=== PATIENT | male | born 1985 | race Caucasian/White ===

== ENCOUNTER 2017-02-10 13:27 | Observation (INO) ==
[2017-02-10] MEDS ORDERED: Aspirin 81 MG TAB.CHEW PO STA (15:17)
[2017-02-10 15:31] LABS: Basophils % 0.4 %; Eosinophils # 0.1 K/mcL (0.0-0.6); Eosinophils % 0.7 %; Hematocrit 47.6 % (37.5-50.1); Hemoglobin 16.2 g/dL (12.9-16.9); Immature Granulocytes % 0.3 % (0-4); Lymphocytes # 1.7 K/mcL (0.6-4.6); Lymphocytes % 18.7 %; Mean Corpuscular Hemoglobin 29.2 pg (28.0-33.3); Mean Corpuscular Volume 85.8 fL (83.0-100.0); Mean Platelet Volume 10.3 fL (9.4-12.4); Monocytes # 0.6 K/mcL (0.0-1.3); Monocytes % 6.7 %; Neutrophils # 6.6 K/mcL (1.6-8.9); Platelet Count 200 K/mcL (140-400); Red Blood Count 5.55 M/mcL (4.19-5.50); Red Cell Distribution Width 12.3 % (11.5-14.5); Segmented Neutrophils % 73.2 %
--- NOTE | 2017-02-10 15:36 | Emergency Department Note ---
Disposition Clinical Impression: Chest pain Qualifiers: Chest pain type: unspecified Qualified Code(s): R07.9 - Chest pain, unspecified Disposition: Admitted As Inpatient Referrals: Enid Graf M.D. [Primary Care Provider] - Chest Pain HPI - General Chief Complaint: ED Chest Pain Stated Complaint: chest pain, PALAK Time Seen by Provider: 02/10/17 14:59 Source: patient Limitations: no limitations Vital Signs Reviewed: Yes Nursing Notes Reviewed: Yes - History of Present Illness HPI Narrative: 31-year-old male presents to the ED with complaints of chest pain. His past medical history consists of hypertension where he no longer takes medications as he is now controlled with exercise and diet for 1 year. Patient states the pain occurred approximately a half hour before his arrival to the emergency department while he was driving to work. He states the pain is 5 out of 10, sharp and nonradiating. He states the pain comes and goes and lasts for about 2 -3 minutes and then we will leave. He does not notice any exertional pain or when he does any specific tasks that it occurs. He has never felt this pain before. Does note shortness of breath only during the times of pain. Upon this examination he was not currently in pain while I was examining him. Patient does have a family history of heart attacks at a young age where his mother's father had a heart attack in his 30s where he had a heart catheter at that time. Pt complaint: chest pain Severity scale (1-10): 0 - Related Data Home Medications Medication Instructions Recorded Confirmed No Known Home Drugs 02/10/17 02/10/17 Allergies Allergy/AdvReac Type Severity Reaction Status Date / Time No Known Allergies Allergy Verified 02/10/17 13:38 Constitutional: Denies: fever, chills, weakness, weight change Eyes: Denies: eye pain, eye discharge, vision change ENT ED: Denies: ear pain, throat pain, dental pain, hearing loss, epistaxis, congestion, dysphagia Cardiovascular: Reports: chest pain. Denies: palpitations, dyspnea on exertion , edema, syncope Respiratory: Denies: cough, dyspnea, wheezes, hemoptysis, stridor Gastrointestinal: Denies: abdominal pain, nausea, vomiting, diarrhea, constipation, hematemesis, melena, hematochezia Genitourinary: Denies: urgency, dysuria, frequency, hematuria Musculoskeletal: Denies: back pain, neck pain, arthralgia, myalgia Integumentary: Denies: rash, abrasion, lesions Neurological: Reports: headache (A slight headache during his drive.). Denies: weakness, numbness, paresthesias, confusion, abnormal gait, vertigo Endocrine: Denies: fatigue Hematological/Lymphatic: Denies: easy bleeding, easy bruising Chest Pain PMH - Past Medical History Medical history: Reports: hypertension, other - Social History Smoking Status: Never smoker Alcohol use: Reports: occasionally Drug use: Reports: none Physical Exam - General Limitations: no limitations General appearance: alert - Head Head exam: atraumatic, normocephalic, normal inspection - Chest Chest inspection: Present: normal inspection, symmetric chest wall rise - Respiratory Respiratory exam: Present: normal lung sounds bilaterally - Cardiovascular Cardiovascular exam: Present: regular rate, normal rhythm, normal heart sounds - Abdominal Exam Abdominal exam: Present: soft, Non-Tender. Absent: tenderness, distention, guarding, rebound, rigidity Course Course Narrative: -year-old male presents to the ED with complaints of chest pain. He has no pertinent medical history. Will do normal chest pain workup with chest x-ray EKG, BNP, CBC, troponin. Due to the sudden onset of chest pain and shortness of breath during the pain will order a d-dimer. Vital Signs Temperature 97.9 F 02/10/17 13:36 Pulse Rate 93 02/10/17 13:36 Respiratory Rate 18 02/10/17 13:36 Blood Pressure 169/97 02/10/17 13:36 O2 Sat by Pulse Oximetry 97 02/10/17 13:36 Temperature 97.9 F 02/10/17 13:36 Pulse Rate 80 02/10/17 15:29 Respiratory Rate 16 02/10/17 15:29 Blood Pressure 131/81 02/10/17 15:29 O2 Sat by Pulse Oximetry 98 02/10/17 15:29 Oxygen Delivery Oxygen Delivery Room Air Chest Pain - [facility] Narrative Medical decision making narrative: 31 yo male presents to the ED with complaints of chest pain. She has a past medical history of hypertension but is unmedicated for the last year and is controlling it with exercise. He has a family history of young age heart attacks. Will do a normal chest pain workup. Further workup was done in triage before I saw the patient. Chest x-ray showed no acute pulmonary findings. EKG was normal as well. Labs are still pending. After talking to patient and him stating he was short of breath and the sudden onset of the pain will order a d-dimer. The patient was PERC negative but after looking a patient in an extending his symptoms will order d-dimer to rule out pulmonary embolus or other vascular issues. Will not give nitroglycerin at this point because he is not currently having chest pain. Did give patient 324 mg of chewable aspirin. Patient is okay with this plan. 1640-patient was reevaluated and states he still does not have any chest pain. All labs came back normal chest x-ray was normal, and EKG was normal. Due to patient's chest pain beginning 3 hours ago we cannot rule out an acute cardiac event. After talking the patient further we found out that his entire family has Marfan syndrome and he does not have that and has not done any cardiac testing. After talking to patient and we decided his best to admit the patient for a chest pain rule out due to time of chest pain onset and family history. Patient agrees to the plan. 1800- Spoke with Dr. Leiva who agrees to admit the patient for chest pain rule out. Patient was worried about how to get car to family and kids spoke with social media marketing specialist Jessenia who stated she will talk to him and see if she can set something up. Chest X-Ray 02/10/17 13:43 IMPRESSION: 1. No active pulmonary disease. D/ / Deangelo Cross MD / Deangelo Cross MD Interpreting Provider: Deangelo Cross MD - Medical Records Medical records reviewed: Yes I reviewed the patient's medical records. - Lab Data Lab results reviewed: Yes I reviewed the patient's lab results. Result diagrams: 02/10/17 15:18 02/10/17 15:18 Lab Results 02/10/17 02/10/17 02/10/17 Range/Units 15:18 15:18 15:18 WBC 9.1 (4.3-11.1) K/mcL RBC 5.55 H (4.19-5.50) M/mcL Hgb 16.2 (12.9-16.9) g/dL Hct 47.6 (37.5-50.1) % MCV 85.8 (83.0-100.0) fL MCH 29.2 (28.0-33.3) pg MCHC 34.0 (31.6-35.5) g/dL RDW 12.3 (11.5-14.5) % Plt Count 200 (140-400) K/mcL MPV 10.3 (9.4-12.4) fL Immature Gran % 0.3 (0-4) % Seg Neutrophils % 73.2 % Lymphocytes % 18.7 % Monocytes % 6.7 % Eosinophils % 0.7 % Basophils % 0.4 % Neutrophils # 6.6 (1.6-8.9) K/mcL Lymphocytes # 1.7 (0.6-4.6) K/mcL Monocytes # 0.6 (0.0-1.3) K/mcL Eosinophils # 0.1 (0.0-0.6) K/mcL Basophils # 0.0 (0.0-0.2) K/mcL PT 10.5 (9.4-12.1) Seconds INR 1.0 APTT 27.4 (26.0-36.0) Seconds D-Dimer 374 (0-500) ng/mLFEU Sodium 137 (136-145) mEq/L Potassium 4.3 (3.5-4.5) mEq/L Chloride 107 (98-109) mEq/L Carbon Dioxide 27 (19-29) mEq/L BUN 11 (8-26) mg/dL Creatinine 0.85 (0.72-1.25) mg/dL Est GFR ( Amer) > 60 (> 60) Est GFR (Non-Af Amer) > 60 (> 60) BUN/Creatinine Ratio 13 (6-26) Glucose 85 (70-99) mg/dL Calculated Osmolality 283 (280-300) Calcium 9.4 (8.6-10.8) mg/dL Troponin I (0-0.03) ng/mL 02/10/17 Range/Units 15:18 WBC (4.3-11.1) K/mcL RBC (4.19-5.50) M/mcL Hgb (12.9-16.9) g/dL Hct (37.5-50.1) % MCV (83.0-100.0) fL MCH (28.0-33.3) pg MCHC (31.6-35.5) g/dL RDW (11.5-14.5) % Plt Count (140-400) K/mcL MPV (9.4-12.4) fL Immature Gran % (0-4) % Seg Neutrophils % % Lymphocytes % % Monocytes % % Eosinophils % % Basophils % % Neutrophils # (1.6-8.9) K/mcL Lymphocytes # (0.6-4.6) K/mcL Monocytes # (0.0-1.3) K/mcL Eosinophils # (0.0-0.6) K/mcL Basophils # (0.0-0.2) K/mcL PT (9.4-12.1) Seconds INR APTT (26.0-36.0) Seconds D-Dimer (0-500) ng/mLFEU Sodium (136-145) mEq/L Potassium (3.5-4.5) mEq/L Chloride (98-109) mEq/L Carbon Dioxide (19-29) mEq/L BUN (8-26) mg/dL Creatinine (0.72-1.25) mg/dL Est GFR ( Amer) (> 60) Est GFR (Non-Af Amer) (> 60) BUN/Creatinine Ratio (6-26) Glucose (70-99) mg/dL Calculated Osmolality (280-300) Calcium (8.6-10.8) mg/dL Troponin I 0.00 (0-0.03) ng/mL - Radiology Data Radiology results reviewed: Yes I reviewed the patient's radiology results. - EKG Data EKG attestation: Yes I reviewed and interpreted this EKG. EKG results narrative: KG done at 1342. There is no old EKG for comparison. Rhythm shows normal sinus with a rate of 93 AK 160 QRS 90 and QTc 357. Normal axis. No acute ST changes. No acute T-wave changes. No signs of WPW, Brugada. EKG shows normal: sinus rhythm Rate: normal Rhythm: NSR Bigelow/QRS: normal When compared to previous EKG there are: previous EKG unavailable Interpretation: no acute changes, normal EKG Heart Score - Score History: Slightly Suspicious EKG: Normal Age: Less than 45 Risk Factors: 1-2 risk factors Troponin: Less than normal limit HEART Score Total: 1 Attestation Statement - Attestation Attestation: I personally interviewed and examined this patient and my medical decision- making was reviewed with the ED Resident Physician, Dr. Randolph. I agree with the documented findings, disposition and treatment plan as described except to the extent set forth below. Patient is a 31-year-old white male with a history of hypertension no longer on medication, positive family history for CAD, and strong immediate family history for Marfan's who presents to the emergency room today with chest pain and shortness of breath. Pain began while driving to work at rest in his left chest was radiating up into his left arm pain associated with mild nausea, shortness of breath. Patient has not had any previous cardiac workup in the past with the exception of his evaluation for Marfan's. Patient has never had a cardiac stress test or heart catheterization. Patient states that he was told that he does not have Marfan's but he is the only one in his immediate family he does not. Patient's on my assessment was pain-free on arrival to the triage desk. . Patient's physical exam findings as documented. Patient's EKG was normal sinus rhythm with no acute changes. Patient's laboratory evaluation is unremarkable including troponin and d-dimer. Chest x-ray is within normal limits. Patient remains pain-free with stable vital signs in the ED. Patient with concerning signs and symptoms of pain length of time that he experienced the pain, positive family history as well as strong immediate family history for Marfan's. Based on the time of onset we are unable to rule him out here in the ED. We recommended he comes in for admission for chest pain and further evaluation.
[2017-02-10 15:48] LABS: BUN/Creatinine Ratio 13 (6-26); Blood Urea Nitrogen 11 mg/dL (8-26); Calcium 9.4 mg/dL (8.6-10.8); Carbon Dioxide 27 mEq/L (19-29); Chloride 107 mEq/L (98-109); Glucose 85 mg/dL (70-99); Osmolality,Calculated 283 (280-300); Potassium 4.3 mEq/L (3.5-4.5); Sodium 137 mEq/L (136-145); eGFR For African Americans > 60 (> 60); eGFR For Non-African Americans > 60 (> 60)
[2017-02-10 15:51] LABS: Prothrombin Time 10.5 Seconds (9.4-12.1)
[2017-02-10 15:54] LABS: Activated Partial Thrombo Time 27.4 Seconds (26.0-36.0)
[2017-02-10] MEDS ORDERED: *HR* Morphine 2 MG/ML SYRINGE IVP PRN (22:42)
[2017-02-10] MEDS ORDERED: Naloxone 0.4 MG/ML INJ IVP PRN (22:42)
[2017-02-10] MEDS ORDERED: Acetaminophen 325 MG TABLET PO PRN (22:42)
[2017-02-10] MEDS ORDERED: Ondansetron 4 MG/2 ML VIAL IVP PRN (22:42)
--- NOTE | 2017-02-10 22:51 | Internal Med History&Physical ---
Date of Encounter: 02/10/17 Time of Encounter: 22:05 Assessment and Plan (1) Chest pain Current visit: Yes Status: Acute 1. Will cycle troponins, EKG's. 2. Will schedule stress nuclear test in the morning. 3. Check lipid profile in am. 4. Monitor BP given history of HTN. 5. Patient received aspirin in ER. Qualifiers: Chest pain type: precordial pain Qualified Code(s): R07.2 - Precordial pain (2) Family history of Marfan syndrome Current visit: Yes Status: Chronic 1. Patient does not have body habitus of Marfan's on exam. 2. Will order ECHO in the morning nonetheless to evaluate cardiac anatomy. (3) DVT prophylaxis Current visit: Yes Status: Acute 1. Heparin SQ. Internal Medicine - H&P: HPI Chief complaint: chest pain Admitted From: Emergency Dept Plans for Post Hospital Care: Home History of present illness: Mr. Matute is a 31 year old male who was driving to work earlier today when he developed substernal chest pain, pressure, palpitations, diaphoresis, and lightheadedness. He pulled his car over the right side, open his windows, and turned up the air-conditioning in hopes of alleviating symptoms. However, symptoms lasted about 20-25 minutes and he had no relief. He therefore drove himself to the ER where he was evaluated for his symptoms. He was subsequently admitted to the hospitalist service for further workup and care. His symptoms resolved shortly after arrival to the ER. He currently remains chest pain-free and has no further symptoms. Despite his young age, there is concern for heart disease given his strong family history of premature coronary artery disease. His maternal grandfather had a heart attack in his 30s. Heart disease runs extensively in his mother's side. Furthermore, his mother and 2 siblings have Marfan syndrome. He had an echo about 12 years ago which was reportedly normal. He has never been diagnosed with Marfan syndrome himself. He does have a history of blood pressure and cholesterol problems, but he has been off medications and his blood pressure and cholesterol have stabilized he reports. Past Med Surg Social Fam HX - Past Medical History Attestation: Yes The following information was validated with the patient. Source: patient, old records reviewed Medical history: hyperlipidemia, hypertension Psychiatric history: bipolar, depression - Past Surgical History Surgical History: herniorrhaphy - Social History Smoking Status: Never smoker Smokeless Tobacco Status: Yes Alcohol use: occasionally Drug use: none Occupational status: employed Current living situation: Home, With Family Activity Level: Independent ambulation, Very active Recent Out of Country Travel Within the Last 8 Weeks: No - Family History Mother Age: 61 Living Status: Still Living Hx Family Cardiac Disorders: Yes (HTN) Hx Family Endocrine Disorder: Yes (DM) Hx Family Medical Disorders: Yes (Marfan Syndrome) Father Living Status: Age at : 50 Cause of : Xi's Disease - Additional Family History Additional family history: Mother adn 2 siblings with Marfan's Syndrome Internal Medicine - H&P: Meds No Known Home Drugs 02/10/17 [History] Allergies No Known Allergies Allergy (Verified 02/10/17 13:38) - Constitutional Constitutional: no chills, no fever(s), no night sweats - EENT Eyes: no blurry vision, no change in vision, no diplopia Ears: no ear pain, no tinnitus Nose, mouth and throat: no nasal congestion, no sinus pressure, no sore throat - Cardiovascular Cardiovascular ROS IM: chest pain, diaphoresis, dyspnea, lightheadedness, palpitations, no irregular heart rhythm, no syncope - Respiratory Respiratory: dyspnea, no cough, no hemoptysis, no chest congestion, no excessive phlegm production, no change in phlegm color - Gastrointestinal Gastrointestinal: no abdominal pain, no diarrhea, no hematemesis, no hematochezia, no melena, no vomiting - Genitourinary Genitourinary ROS male: no dysuria, no flank pain, no hematuria - Musculoskeletal Musculoskeletal ROS IM: back pain, no atrophy - Integumentary Integumentary IM: no rash - Neurological Neurological ROS: dizziness, no focal weakness, no frequent falls, no headache(s ), no numbness - Psychiatric Psychiatric: no anxiety, no depression - Endocrine Endocrine IM: no cold intolerance, no heat intolerance, no polydipsia, no polyuria - Hematologic/Lymphatic Hematologic/Lymphatic: no easy bruising, no lymphadenopathy - Allergic/Immunologic Allergic/Immunologic: no wheezing, no GI upset with certain foods - Constitutional Vitals: Temp Pulse Resp BP Pulse Ox 98.7 F 80 16 148/84 94 02/10/17 22:30 02/10/17 22:30 02/10/17 22:30 02/10/17 22:30 02/10/17 22:30 General appearance: Present: cooperative, A&O X 3, pleasant, no acute distress, answers questions appropriately - Head Head exam: Present: atraumatic, normal inspection - Eye Eye exam: Present: EOMI, PERRL. Absent: scleral icterus Pupils: Present: normal accommodation - ENT ENT exam: Present: mucous membranes moist, normal exam - Neck Neck exam general surgery: Present: full ROM, supple. Absent: lymphadenopathy, tenderness - Expanded Neck Exam Neck exam: Absent: carotid bruit - Respiratory Respiratory exam: Present: CTAB. Absent: chest wall tenderness, rales, rhonchi , wheezes - Cardiovascular Cardiovascular exam: Present: RRR, +S1, +S2. Absent: diastolic murmur, JVD, systolic murmur - GI/Abdominal GI/Abdominal exam: Present: normal bowel sounds, soft. Absent: hepatomegaly, mass, splenomegaly, tenderness - Extremities Exam Extremities exam: Present: full ROM, warm, radial pulses palpable and symetrical. Absent: calf tenderness, joint swelling, pedal edema, tenderness - Back Exam Back exam: Present: normal inspection. Absent: CVA tenderness (L), CVA tenderness (R) - Neurological Exam Neurological exam: Present: alert, CN II-XII intact, oriented X3, no focal deficits - Psychiatric Psychiatric exam: Present: normal affect, normal mood - Skin Skin exam: Present: dry, warm. Absent: rash Internal Med - H&P Results - Labs CBC & Chem 7: 02/10/17 15:18 02/10/17 15:18 - EKG Data -: EKG Interpreted by Myself EKG shows normal: sinus rhythm - EKG Data Prior EKG available for review: no EKG comments: 02/10/17 22:55 WNL; NSR; no acute changes - Diagnostic Studies Chest x-ray Status: image reviewed by me (negative)
[2017-02-10] MEDS: *HR* Heparin 5,000 UNIT/ML VIAL SQ SCH (23:00)
[2017-02-10] MEDS: Famotidine 20 MG TABLET PO SCH (23:00)
[2017-02-11 05:00] LABS: Basophils # 0.1 K/mcL (0.0-0.2); Basophils % 0.6 %; Eosinophils # 0.2 K/mcL (0.0-0.6); Eosinophils % 1.9 %; Hematocrit 45.7 % (37.5-50.1); Hemoglobin 15.6 g/dL (12.9-16.9); Immature Granulocytes % 0.7 % (0-4); Lymphocytes # 2.9 K/mcL (0.6-4.6); Lymphocytes % 35.7 %; Mean Corpuscular HGB Conc 34.1 g/dL (31.6-35.5); Mean Corpuscular Hemoglobin 29.4 pg (28.0-33.3); Mean Corpuscular Volume 86.2 fL (83.0-100.0); Mean Platelet Volume 10.2 fL (9.4-12.4); Monocytes # 0.8 K/mcL (0.0-1.3); Monocytes % 9.5 %; Neutrophils # 4.1 K/mcL (1.6-8.9); Platelet Count 199 K/mcL (140-400); Red Cell Distribution Width 12.5 % (11.5-14.5); Segmented Neutrophils % 51.6 %
[2017-02-11 05:15] LABS: Alanine Aminotransferase 55 Units/L (0-55); Albumin 3.3 g/dL (3.5-5.0); Albumin/Globulin Ratio 0.9 (1.1-2.2); Alkaline Phosphatase 77 Units/L (38-126); Aspartate Amino Transferase 30 Units/L (5-34); BUN/Creatinine Ratio 11 (6-26); Bilirubin,Total 0.5 mg/dL (0.2-1.2); Blood Urea Nitrogen 11 mg/dL (8-26); Calcium 9.3 mg/dL (8.6-10.8); Carbon Dioxide 26 mEq/L (19-29); Chloride 107 mEq/L (98-109); Chol/HDL Ratio 4.6 (0-4.9); Cholesterol 167 mg/dL (< 200); Globulin 3.6 g/dL (2.4-3.5); Glucose 92 mg/dL (70-99); HDL Cholesterol 36 mg/dL (40-59); LDL Cholesterol,Calculated 107 mg/dL (0-99); Osmolality,Calculated 287 (280-300); Sodium 139 mEq/L (136-145); Total Protein 6.9 g/dL (6.0-8.3); Triglycerides 122 mg/dL (< 150); eGFR For African Americans > 60 (> 60); eGFR For Non-African Americans > 60 (> 60)
[2017-02-11] MEDS: Famotidine 20 MG TABLET PO SCH ×2 (06:32→17:40)
[2017-02-11] MEDS: *HR* Heparin 5,000 UNIT/ML VIAL SQ SCH ×2 (06:33→17:40)
--- NOTE | 2017-02-11 18:11 | Internal Med Progress Note ---
Date of Encounter: 02/11/17 Time of Encounter: 17:00 - Assessment and plan (1) Chest pain Current Visit: Yes Status: Acute Assessment and plan: Patient currently denies chest pain, lightheadedness, dizziness, or palpitations. Chest x-ray negative. Echocardiogram normal with ejection fraction of 55-60%. Troponins negative 4. Patient was hypertensive upon arrival however has been normotensive since admission without the use of antihypertensive medications. We will continue to trend. Awaiting second part of his stress test tomorrow, if negative, likely discharge tomorrow. ITS Impressions Chest X-Ray 02/10/17 13:43 IMPRESSION: 1. No active pulmonary disease. D/ / Deangelo Cross MD / Deangelo Cross MD Interpreting Provider: Deangelo Cross MD Echocardiogram impressions: There is a trivial pericardial effusion present. No pulmonary hypertension. LVEF 55-60%. Normal left ventricular diastolic function. No significant valvular dysfunction. (2) Hyperlipidemia Current Visit: Yes Status: Chronic Assessment and plan: Borderline abnormal lipid profile however LDL is greater than 70 at 107, statin is indicated, will continue low-dose statin upon discharge and educated on low cholesterol diet. (3) Hypertension Current Visit: Yes Status: Chronic Assessment and plan: He was hypertensive upon arrival however is now normotensive without the use of antihypertensive medications. We will continue to monitor and initiate medications if indicated. Qualifiers: Hypertension type: unspecified Qualified Code(s): I10 - Essential (primary ) hypertension (4) Family history of Marfan syndrome Current Visit: Yes Status: Chronic Assessment and plan: Has been ruled out and the patient. (5) DVT prophylaxis Current Visit: Yes Status: Acute Assessment and plan: Subcutaneous heparin (6) Morbid obesity with BMI of 40.0-44.9, adult Current Visit: Yes Status: Chronic - Subjective Interval history: Patient seen and examined. On examination, patient sitting upright in bed watching television. Patient denies pain or shortness of breath. He denies palpitations or lightheadedness. - Constitutional Vitals: Temp Pulse Resp BP Pulse Ox 98.5 F 81 16 134/80 95 02/11/17 15:31 02/11/17 15:31 02/11/17 15:31 02/11/17 15:31 02/11/17 15:31 General appearance: Present: cooperative, A&O X 3, morbidly obese, pleasant, no acute distress, answers questions appropriately - Head Head exam: Present: atraumatic, normocephalic - Eye Eye exam: Present: PERRL, conjuntiva pink, sclera anicteric Pupils: Present: PERRL - Neck Neck exam general surgery: Present: supple, trachea midline. Absent: lymphadenopathy - Respiratory Respiratory exam: Present: CTAB. Absent: accessory muscle use, rales, respiratory distress, rhonchi, wheezes - Cardiovascular Cardiovascular exam: Present: RRR, +S1, +S2. Absent: diastolic murmur, gallop, rubs, systolic murmur - GI/Abdominal GI/Abdominal exam: Present: normal bowel sounds, soft, no peritoneal signs. Absent: distended, tenderness - Extremities Exam Extremities exam: Present: warm, radial pulses palpable and symetrical. Absent : calf tenderness, cyanotic, pedal edema - Neurological Exam Neurological exam: Present: alert, CN II-XII intact, normal gait, oriented X3, no focal deficits, strengths equal and symetr throughout. Absent: pronater drift, facial droop, speech deficit - Skin Skin exam: Present: dry, intact, normal color, warm Internal Medicine: Result - Labs CBC & Chem 7: 02/11/17 04:53 02/11/17 04:53 Labs: Short CBC 02/11/17 Range/Units 04:53 WBC 8.0 (4.3-11.1) K/mcL Hgb 15.6 (12.9-16.9) g/dL Hct 45.7 (37.5-50.1) % Plt Count 199 (140-400) K/mcL Neutrophils # 4.1 (1.6-8.9) K/mcL BMP 02/11/17 04:53 Sodium 139 Potassium 4.0 Chloride 107 Carbon Dioxide 26 BUN 11 Creatinine 0.97 Glucose 92 Calcium 9.3 Cardiac Enzymes 02/10/17 02/11/17 02/11/17 Range/Units 22:53 04:53 10:48 Troponin I 0.01 0.00 0.01 (0-0.03) ng/mL Liver Function 02/11/17 Range/Units 04:53 Total Bilirubin 0.5 (0.2-1.2) mg/dL AST 30 (5-34) Units/L ALT 55 (0-55) Units/L Alkaline Phosphatase 77 (38-126) Units/L Albumin 3.3 L (3.5-5.0) g/dL - ABG Interpretation ABG results: PT/INR, D-dimer PT 10.5 Seconds (9.4-12.1) 02/10/17 15:18 D-Dimer 374 ng/mLFEU (0-500) 02/10/17 15:18 Consult Discharge Plan - Plan
--- NOTE | 2017-02-11 21:47 | Electrocardiograph Report ---
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
[2017-02-12] MEDS: *HR* Heparin 5,000 UNIT/ML VIAL SQ SCH (05:56)
[2017-02-12] MEDS: Famotidine 20 MG TABLET PO SCH (07:45)
--- NOTE | 2017-02-12 09:22 | Nuclear Medicine Stress Report ---
Exercise Nuclear Stress 2 day Name: Eliu Matute Date of Study: 02/11/2017 Date: 1985 Ht: 75.0 in Medical Record#: [id number] Age: 31 Wt: 352.0 lb Gender: Male Order #: [id number] Location: [facility] Room: [place] Supervising Provider: Christopher Alvarez CNP Reading Physician: Rajiv Cazares MD, [facility] Ordering Physician: Carmela Sims CNP Primary Care Physician: Enid Graf MD Stress Technologist: Pierre Arreguin, [employer], [facility] Senior Underwriter: Will Kohler Indications: Chest Pain, Palpitations Impression: Perfusion imaging was negative for ischemia or infarct. Exercise ECG was negative for ischemia. Exercise capacity was average. Gated EF = 61%. There is no evidence of TID. Stress Test Summary: Stress Test Type: Treadmill Protocol: Rajiv Baseline Information: Initial Heart Rate: 78 Blood Pressure: 128/86 Stress Information: Stress Time: 8 min 00 sec Test Terminated Due to (primary): Dyspnea Maximum Blood Pressure: 172/84 Maximum Heart Rate: 175 Percent Maximum Heart Rate Achieved: 89 Double Product: 93720 METS Reached: 10.1 Symptoms: pain L side Nuclear Summary: SPECT myocardial perfusion imaging using Tc99m Sestamibi given intravenously was performed at rest and following cardiac stress testing. The resting images were obtained following initial dose of 31.9 mCi. Following stress an additional dose of 33.2 mCi was given at peak exercise or 30 seconds post regadenoson infusion. Medication Given: Time Medication Dose Units Route Findings: Stress Note * Resting ECG demonstrated normal sinus rhythm. * No baseline arrhythmias were noted. * Exercise ECG is negative for ischemia. * Occasional PVCs noted during stress. * Patient had atypical chest pain during stress. * The exercise capacity was average. Hemodynamic responses * The patient demonstrated a hypertensive blood pressure response. Gated EF % * Gated EF = 61%. STUDY QUALITY * STUDY QUALITY Study Quality * Study quality is good. Left Ventricle * The left ventricle is not dilated. NORMALS * Normal wall motion. * Normal segmental perfusion in stress. * Normal Segmental Perfusion in rest. TID * No evidence of transient ischemic dilatation. Updated by Rajiv Cazares MD, FACC on 02/12/2017 9:16:35 AM electronically signed on 02/12/2017 9:16:49 AM with status of Final
[2017-02-12 11:00] VITALS: BP 122/75
--- NOTE | 2017-02-12 12:12 | Discharge Summary ---
Date of Encounter: 02/12/17 Time of Encounter: 11:00 - Discharge Diagnosis (1) Chest pain Priority: Primary Status: Resolved Comments: Patient denied chest pain or shortness of breath throughout this admission. ACS ruled out. (2) Hyperlipidemia Priority: Secondary Status: Chronic Comments: Borderline abnormal lipid profile however LDL is greater than 70 at 107, statin is indicated, initiated low-dose statin upon discharge and educated on low cholesterol diet. (3) Hypertension Priority: Secondary Status: Chronic Comments: He was hypertensive upon arrival however was normotensive while admitted without the use of antihypertensive medications. Recommend daily blood pressure checks at home, and following up outpatient. Qualifiers: Hypertension type: unspecified Qualified Code(s): I10 - Essential (primary ) hypertension (4) Family history of Marfan syndrome Priority: Secondary Status: Chronic Comments: ruled out in this patient (5) DVT prophylaxis Priority: Primary Status: Acute Comments: Subcutaneous heparin while admitted (6) Morbid obesity with BMI of 40.0-44.9, adult Priority: Secondary Status: Chronic - Discharge Medications Prescriptions: Atorvastatin [Lipitor] 10 mg PO HS #30 tablet Home Medications: Atorvastatin [Lipitor] 10 mg PO HS #30 tablet 02/12/17 [Rx] Allergies/Adverse Reactions: Allergies No Known Allergies Allergy (Verified 02/10/17 13:38) Procedures/tests Complete & Pending: Procedures Performed prior 72 hours Category Date Time Status NM shyanne perf SPECT multi [NM] Routine Exams 02/10/17 22:45 Taken ECG 12 lead ECG [ECG] AM 0600 Y 02/11/17 06:00 Completed ECG 12 lead ECG [ECG] Routine Y 02/11/17 14:25 Completed EV echocardiogram Routine Y 02/11/17 22:42 Completed SP exercise nuclear stress Routine Y 02/11/17 07:30 Completed Date of admission: 02/10/17 17:17 Primary care physician: Enid Graf M.D. Discharging clinician: Carmela Sims Anticipated date of discharge: 02/12/17 - Patient Status Disposition: Home, Self-Care Condition: Good Functional capacity at discharge: independent ambulation Overall status at discharge: patient is back to baseline - Discharge Instructions Follow Up With: Homar Kay,[place] [Primary Care Provider] - Forms: ED Satisfaction Letter Additional Instructions: Follow-up with primary care provider within one to 2 weeks, check blood pressure daily at home and keep a log - Diet and Activity Activity: increase activity as tolerated Diet: low fat, low cholesterol, low salt diet Hospital course: Mr. Matute is a 31 year old male with past medical history of hyperlipidemia, hypertension, bipolar disorder. Patient was driving to work on the day of presentation when he developed substernally located chest pain, pressure, palpitations, diaphoresis, and lightheadedness. He pulled over right away, opened his windows, turned on his air conditioning but however his symptoms lasted 20-25 minutes without relief so he drove himself to the emergency department. Workup in the emergency department unremarkable other than hypertension upon arrival. Patient was admitted to the hospitalist service for further evaluation and management. Chest x-ray negative. Patient denied chest pain, lightheadedness, dizziness, palpitations, or shortness of breath throughout this admission. Echocardiogram normal with ejection fraction of 55- 60%. Troponins were negative 4. Patient had a 2 part stress test that was negative for ischemia or infarct and ACS was ruled out. Regarding his hypertension, his blood pressure normalized without the use of antihypertensive medications during this admission so he was instructed to check his blood pressure daily at home and follow up outpatient. He was started on low-dose statin as his LDL was greater than 70 at 107. He was discharged home in stable condition with close outpatient follow-up recommended. ITS Impressions Chest X-Ray 02/10/17 13:43 IMPRESSION: 1. No active pulmonary disease. D/ / Deangelo Cross MD / Deangelo Cross MD Interpreting Provider: Deangelo Cross MD Echocardiogram impressions: There is a trivial pericardial effusion present. No pulmonary hypertension. LVEF 55-60%. Normal left ventricular diastolic function. No significant valvular dysfunction. Exercise nuclear stress 2 day impressions: Perfusion imaging was negative for ischemia or infarct. Exercise ECG was negative for ischemia. Exercise capacity was average. Gated ejection fraction equals 61%. There is no evidence of TID. - Time Spent with Patient Total time spent providing and/or coordinating discharge services: - Constitutional Vitals: Temp Pulse Resp BP Pulse Ox 98.5 F 86 18 122/75 93 02/12/17 10:59 02/12/17 10:59 02/12/17 10:59 02/12/17 10:59 02/12/17 10:59 General appearance: Present: cooperative, A&O X 3, morbidly obese, pleasant, no acute distress, answers questions appropriately - Head Head exam: Present: atraumatic, normocephalic - Eye Eye exam: Present: PERRL, conjuntiva pink, sclera anicteric Pupils: Present: PERRL - Neck Neck exam general surgery: Present: supple, trachea midline. Absent: lymphadenopathy - Respiratory Respiratory exam: Present: CTAB. Absent: accessory muscle use, rales, respiratory distress, rhonchi, wheezes - Cardiovascular Cardiovascular exam: Present: RRR, +S1, +S2. Absent: diastolic murmur, gallop, rubs, systolic murmur - GI/Abdominal GI/Abdominal exam: Present: normal bowel sounds, soft, no peritoneal signs. Absent: distended, tenderness - Extremities Exam Extremities exam: Present: warm, radial pulses palpable and symetrical. Absent : calf tenderness, cyanotic, pedal edema - Neurological Exam Neurological exam: Present: alert, CN II-XII intact, normal gait, oriented X3, no focal deficits, strengths equal and symetr throughout. Absent: pronater drift, facial droop, speech deficit - Skin Skin exam: Present: dry, intact, normal color, warm
--- NOTE | 2017-02-13 15:05 | Electrocardiograph Report ---
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
--- NOTE | 2017-02-13 15:06 | Electrocardiograph Report ---
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
== END 2017-02-12 13:55 | disposition home or self-care (01) ==
LOC: 3BNU 13:27 → EMEROO 13:27 → 3BNU 17:54
PROVIDERS: ADMIT Pediatrics; ATTEND Nurse Practitioner Family